=== PATIENT | female | born 1955 | race Two or more races ===

== ENCOUNTER 2023-04-12 05:53 | Day surgery (SDC) | payer OTHER ==
[~2023-04-12 05:53] MED LIST: MACROBID 100 M100 MG PO; PROBIOTIC1 EAC1 PO; SM COD LIVER O1 EACH PO; ULTRACET PO
[2023-04-12] MEDS ORDERED: TRAM1TAB98 PO (12:34)
[2023-04-12] MEDS ORDERED: MACROBID 100 M100 MG PO (12:34)
== END 2023-04-12 16:30 | disposition home or self-care (01) ==
LOC: CIR.AMB 05:53
PROVIDERS: ATTEND Obstetrics & Gynecology Gynecology
DX: N81.11 Cystocele, midline (principal); N81.12 Cystocele, lateral; N81.6 Rectocele; N81.83 Incompetence or weakening of rectovaginal tissue; Z20.822 Contact with and (suspected) exposure to COVID-19; Z88.1 Allergy status to other antibiotic agents; I10 Essential (primary) hypertension

== ENCOUNTER 2024-12-25 05:30 | Day surgery (SDC) | payer OTHER ==
[2024-12-19 11:20] VITALS: BP 108/71
[~2024-12-25] VITALS: Ht 157.5 cm; Wt 64.4 kg
[~2024-12-25 05:30] MED LIST changes: +LAX STOOL SOFT1 EACH PO; +ROSUVASTATIN CA10 MG PO; +TRAM1TAB98 PO
[2024-12-25] MEDS ORDERED: EPINEPHRINE HCL/PF 1 MG/ML AMPUL ONE (07:23)
[2024-12-25] MEDS ORDERED: GENTAMICIN SULFATE 40 MG/ML VIAL ONE (07:23)
[2024-12-25] MEDS ORDERED: CHLORHEXIDINE GLUCONATE 120 ML BOTTLE TOP ONE (07:23)
[2024-12-25] MEDS ORDERED: LIDOCAINE HCL 1%/EPINEPHRINE 20ML VIAL IJ ONE (07:24)
[2024-12-25] MEDS ORDERED: MACROBID 100 M100 MG PO (11:04)
[2024-12-25] MEDS ORDERED: TRAM1TAB98 PO (11:04)
[2024-12-25] MEDS ORDERED: MORPHINE SULFATE 4 MG/ML VIAL IV ONE (12:10)
== END 2024-12-25 14:20 | disposition home or self-care (01) ==
LOC: CIR.AMB 05:30
PROVIDERS: ATTEND Obstetrics & Gynecology Gynecology
DX: N81.6 Rectocele (principal); N81.5 Vaginal enterocele; Z88.1 Allergy status to other antibiotic agents